=== PATIENT | male | born 1950 | race Caucasian/White ===

== ENCOUNTER 2017-09-20 18:33 | Emergency (ER) | payer MEDICARE, OTHER ==
[~2017-09-20] VITALS: Ht 177.8 cm; Wt 89.4 kg
--- OUTSIDE RECORDS SUMMARY | ~2017-09-20 | XMS ---
Demographics + + + | Address | [address] | | | [place] [address] | + + + | Preferred Language | Unknown | + + + | Marital Status | Unknown | + + + | Alevism Affiliation | Unknown | + + + | Race | Unknown | + + + | Ethnic Group | Unknown | + + + Author + + + | Author | [facility] | + + + | Organization | [facility] | + + + | Address | [address] | | | [place] [address] | + + + | Phone | | + + + Care Team Providers + + + + | Care Hydraulic Specialist Name | Role | Phone | + + + + Unavailable | Unavailable | + + + + PROBLEMS + + + + + + + + | Type | Condition | ICD9-CM | [id number] | Onset | Condition | SNOMED | | | | Code | Code | Dates | Status | Code | + + + + + + + + | Assessment | Overweight | | E66.3 | 10 December, | Active | [id number] | | | | | | 2017 | | | + + + + + + + + | Problem | Tinnitus, | H93.12 | | | Active | [phone] | | | left | | | | | 106 | + + + + + + + + | Problem | Ear | 380.4 | | | Active | [id number] | | | build-up | | | | | | + + + + + + + + | Problem | Elevated | R73.9 | | | Active | [id number] | | | blood | | | | | | | | sugar | | | | | | + + + + + + + + | Problem | Dyslipidem | E78.5 | | | Active | [id number] | | | ia | | | | | | + + + + + + + + | Problem | Overweight | | E66.3 | | Active | [id number] | + + + + + + + + | Problem | Seborrheic | L82.1 | | | Active | 49927688 | | | keratosis | | | | | | + + + + + + + + | Problem | Screening | Z12.5 | | | Active | [id number] | | | for | | | | | | | | prostate | | | | | | | | cancer | | | | | | + + + + + + + + | Problem | Encounter | | Z13.89 | | Active | [phone] | | | for | | | | | | | | screening | | | | | | | | for other | | | | | | | | disorder | | | | | | + + + + + + + + ALLERGIES + + + + +---------+ | Substance | Reaction | Event Type | Date | Status | + + + + +---------+ | N.K.D.A. | Unknown | Non Drug | December, | Unknown | | | | Allergy | | | + + + + +---------+ SOCIAL HISTORY No smoking Hx information available PLAN OF CARE VITAL SIGNS + + + + | Height | 58 in | 2016-12-25 | + + + + | Weight | 190 lbs | 2016-12-25 | + + + + | BMI | 39.71 kg/m2 | 2016-12-25 | + + + + | Temperature | 97.6 degrees Fahrenheit | 2016-12-25 | + + + + | Heart Rate | 89 /min | 2016-12-25 | + + + + | Blood pressure systolic | 131 mm Hg | 2016-12-25 | + + + + | Blood pressure diastolic | 86 mm Hg | 2016-12-25 | + + + + MEDICATIONS Unknown Medications RESULTS No Results PROCEDURES + + + + + | Procedure | Date Ordered | Related Diagnosis | Body Site | + + + + + | Est Level II | December 25, 2016 | | | | Limited | | | | + + + + + | DS[facility] MED/CURRENT | December 25, 2016 | | | | MED MERGE | | | | + + + + + IMMUNIZATIONS No Known Immunizations"
[~2017-09-20 18:33] MED LIST: CYCLOBENZAPRINE10 MG PO; IBUPROFEN400 MG PO; NORCO 10-325 T1 EACH PO; NORCO 5-325 TA1 EACH PO; TYLENOL325 MG PO
[2017-09-20] MEDS ORDERED: NORCO 5-325 TA1 EACH PO (19:27)
[2017-09-20] MEDS ORDERED: CYCLOBENZAPRINE10 MG PO (19:27)
[2018-01-15] MEDS ORDERED: IRON325 M1 PO (13:29)
[2018-01-15] MEDS ORDERED: VITAMIN C250 M1 PO (13:30)
== END 2017-09-20 19:47 | disposition home or self-care (01) ==
LOC: ED 18:33
DX: M54.5 Low back pain (principal)
CPT/HCPCS: 99283

== ENCOUNTER 2017-10-19 20:51 | Inpatient (IN) | payer MEDICARE, OTHER ==
[~2017-10-19] VITALS: Ht 177.8 cm; Wt 82.1 kg
[2017-10-20] MEDS ORDERED: IBUPROFEN200 M1 PO (00:04)
[2017-10-20] MEDS ORDERED: ALEVE220 M1 (00:05)
--- NOTE | 2017-10-20 00:37 | NUR ---
ADMITTED PER STRETCHER FROM ED AT 2320. IS ALERT AND ORIENTED X3. DENIES BACK DISCOMFORT. ONLY C/O IS DISCOMFORT FROM NGT. NGT RETAPED. BLOOD THAT WAS STARTED IN ED NOW COMPLETE. PT HAS STOOD AT BEDSIDE X2 TO VOID. CRISTAL BEING UP WELL, NO INC IN HR.
--- NOTE | 2017-10-20 01:18 | NUR ---
PT USED CALL LIGHT TO HAVE URINAL EMPTIED. ASSISTED PT IN BED, NO OTHER NEEDS AT THIS TIME. STATES HE FEELS LITTLE BETTER.
--- NOTE | 2017-10-20 02:18 | NUR ---
NOTED HR INC TO 124, PT FOUND STANDING AT BEDSIDE TO VOID. REMINDED TO CALL BEFORE GETTING UP. NGT TO LCS WITH RETURN OF DARK [employer].
--- NOTE | 2017-10-20 03:15 | NUR ---
PT USED CALL LIGHT TO USE THE URINAL. SAT ON EDGE OF BED, VOIDED 100. ASSISTED BACK TO BED, READJUSTED SELF WITH HELP. CALL LIGHT WITH REACH. NO OTHER NEEDS.
--- NOTE | 2017-10-20 04:04 | NUR ---
PT VOIDING FREQ. C/O INC BACK PAIN AND REQUESTING SOMETHING FOR IT. GIVEN A COLD PACK ALSO. PT HAS ALSO C/O FREQ OF DISCOMFORT OF NGT. PT HAS HAD SCANT AMT DARK TARRY COLORED DRAINAGE FROM NGT. DR MOJICA CALLED AND ORDERS RECIEVE.
--- NOTE | 2017-10-20 04:25 | NUR ---
NG TUBE DC'D WITHOUT PROBLEM. GIVEN 1 NORCO PO.
--- NOTE | 2017-10-20 06:13 | NUR ---
UP FREQ TO VOID. HR DOES INC TO 120'S WITH STANDING. NO OTHER C/O. BACK PAIN IMPROVED.
--- NOTE | 2017-10-20 08:17 | NUR ---
PATIENT IS CURRENTLY IN NO PAIN. NO N/V/D. VS ARE STABLE, LUNGS CLEAR, BOWEL TONES ACTIVE. PATIENT VERBALIZES UNDERSTANDING THAT THE OVER USE OF NSAID MEDICATIONS MAY HAVE CONTRIBUTED TO HIS CURRENT DX AND ADMISSION. AM MEDS BEING HELD FOR NOW WE ARE AWAITING AN ETA FOR PATIENT TO GO TO SURGERY FOR EGD. PATIENT STANDS TO USE THE URINAL AT BEDSIDE WITHOUT DIFFICULTY.
--- NOTE | 2017-10-20 08:20 | NUR ---
HERE TO SEE PATIENT AND DISCUSS PROCEDURE FOR EGD. PATIENT HAD NO QUESTIONS. CONSENT FOR SURGERY SIGNED AND WITNESSED BY THIS RN AND PLACED ON THE FRONT OF THE CHART.
--- NOTE | 2017-10-20 08:50 | NUR ---
CALLED FOR PRE-OP EKG.
--- NOTE | 2017-10-20 10:22 | NUR ---
INFORMED PATIET VOIDING A LOT. ORTHOSTATIC VS ORDERED. SUPINE 123/70 HR=99 SITTING 105/70 SV=977 STANDING 97/59 WI=068 3 MINUTES STANDING 108/61 KF=431 AND PATIENT DIZZY. INFORMED AND PATIENT IV FLUID TO REMAIN AT 150MLS/HR FOR NOW.
--- NOTE | 2017-10-20 11:12 | NUR ---
PATIENT RESTING QUIETLY IN BED AND AWAITING TO GO TO THE OR.
--- NOTE | 2017-10-20 11:49 | NUR ---
PATIENT LEFT FOR OR AT 1137.
--- NOTE | 2017-10-20 13:20 | NUR ---
10/20/17 1320 Lory Zurita 1300 to pacu, oral airway in place. airway assist by staff cont needed 1305 oral airway removed. 1315 responds to verbal commands 1320 repositioned self in bed. o2 room air sats 98%. denies pain or nausea at this time.
--- NOTE | 2017-10-20 13:21 | NUR ---
PT TO EGD AND POSSIBLE SURGERY. WILL FOLLOW NEEDED
--- NOTE | 2017-10-20 13:41 | NUR ---
PATIENT RETURNED FROM RECOVERY AT 1341. PATIENT HAS A DUODENAL ULCER, 6 CLIPS WERE PLACED AND AN EPI INJECTION GIVEN. I EXPLAINED ALL THIS TO THE PATIENT AND HIS OFF THE PT COPY OF THE MD NOTES AND PICTURES AND THEY VERBALIZED UNDERSTANDING. PATIENT RESTING QUIETLY AT THIS TIME. IS AT THE PATIENT'S BEDSIDE.
--- NOTE | 2017-10-20 16:00 | NUR ---
PATIENT CONTINUES TO VOID VIA URINAL FREQUENTLY, VS STABLE, NO N/V/D, NO ABD PAIN.
--- NOTE | 2017-10-20 17:30 | EKG ---
[facility] [address] [facility] [place], [place] [address] Signed Normal sinus rhythm Inferior infarct , age undetermined Abnormal ECG No previous ECGs available Confirmed by ARIAS MOJICA MD ([id number]) on 10/20/2017 5:30:15 PM Electronically Signed By: ARIAS MOJICA MD 10/20/17 1730 PATIENT NAME: REGINALD GARAY JR Electrocardiogram DATE OF : 54 PHYSICIAN: ARIAS MOJICA MD REPORT #: [id number] REPORT IS CONFIDENTIAL AND NOT TO BE RELEASED WITHOUT AUTHORIZATION
--- NOTE | 2017-10-20 17:54 | NUR ---
TALKED WITH ABOUT PATIENT'S FREQUENT VOIDING AND HE ORDERED IV FLUIDS DECREASED TO 85MLS/HR. PATIENT'S LIGHT WENT ON AT THIS TIME AND I WAS EXPECTING THE PATIENT NEEDED TO VOID AGAIN, BUT APON ENTERING THE ROOM I WAS INFORMED THE PATIENT HAD PULLED OUT HIS RAC 18G IV. IT WAS NOT BLEEDING AND I SAID IT THE CATHETER WAS INTACT AND THERE WAS NO BLEEDING. TAPE REMOVED AND PATIENT IS DOING ALRIGHT.
--- NOTE | 2017-10-20 18:00 | NUR ---
PATIENT AND WERE TRYING TO EXPLAIN THE PATIENT'S PROCEDURE TO THERE SON. PATIENT REQUESTED THAT I EXPLAIN THE PROCEDURE AND THE OUTCOME AND THE PLAN OF CARE FROM HERE. THIS I DID AND THE SON SEEMED TO UNDERSTAND WHAT I WAS EXPLAININING EASILY. HE ASKED FOR SOME OTHER INFORMATION, WHICH i DID NOT HAVE ON HAND, BUT TOLD HIM I WOULD GET THE ANSWER TO HIS PARENTS AND HE COULD ASK THEM LATER. WHICH I DID.
--- NOTE | 2017-10-20 18:06 | NUR ---
CALLED AND UPDATED HIM ON THE PATIENT'S IV AND LAB STATUS. HE VERBALIZED UNDERSTANDING AND KNOWS LABS ARE ORDERED FOR 6AM TOMORROW MORNING.
--- NOTE | 2017-10-20 19:11 | NUR ---
Per Dr Trivedi, patient is to take both famotidine and pantoprazole
--- NOTE | 2017-10-20 20:47 | NUR ---
CONT TO VOID FREQ. SHEETS WET ICE PACK LEAKED. HAD PT SIT IN CHAIR WHILE BED CHANGED. CRISTAL FAIR, HR UP TO 108 WITH BEING UP. PT SOMEWHAT STIFF FROM BEING IN BED. WILL GIVEN NORCO FOR BACK PAIN AND REST 30 MIN AFTER CARAFATE WAS GIVEN.
--- NOTE | 2017-10-20 21:11 | NUR ---
UP AT BEDSIDE TO VOID. GIVEN 1 NORCO 5/325 PO WITH SIP H20 FOR BACK PAIN, AND FOR REST.
--- NOTE | 2017-10-20 23:26 | NUR ---
HAD BEE SLEEPING, AWAKE TO VOID. HR TO 134 WITH SITTING AT BEDSIDE. NO C/O WHILE UP. READY TO GO BACK TO SLEEP.
--- NOTE | 2017-10-21 00:59 | NUR ---
C/O INC BACK PAIN. ASKING FOR WARM PACK, WHICH WAS GIVEN. ALSO GIVEN 1 NORCO PO.
--- NOTE | 2017-10-21 03:17 | NUR ---
AWAKE TO VOID, HR UP TO 118 WITH SITTING UP. DENIES BACK PAIN AT THIS TIME.
--- NOTE | 2017-10-21 08:29 | NUR ---
PATIENT IS RESTING IN BED AT THIS TIME. AM MEDS HAVE BEEN ADMINISTERED. IV'S FLUSH WITHOUT DIFFICULTY AND ARE WNL. LUNGS CLEAR. PATIENT IS HAVING 2/10 BACK PAIN AT THIS TIME, BUT IS OK WITH THAT AND DOES NOT WISH TO HAVE ANY PAIN MEDICATION AT THIS TIME. PATIENT SAID HE WILL INFORM THE STAFF IF AND WHEN HE NEEDS ANYTHING FOR PAIN. PATIENT ASKED ME TO GO OVER HIS COPY OF 'S NOTES AND HIS EGD PROCEDURE PICTURES WITH HIM AGAIN, WHICH I DID UNTIL HE VERBALIZED UNDERSTANDING TO HIS SATISFACTION. VS HAVE BEEN STABLE. PATIENT STANDING TO VOID. WILL CONTINUE TO MONITOR.
--- NOTE | 2017-10-21 10:08 | NUR ---
A UNIT OF PRBC'S WAS STARTED AT [address] MOJICA SAW THE PATIENT THIS MORNING AND ORDERED 1 UNIT OF PRBC'S. 1ST SET OF VS STABLE AND POST 15 MINUTES START OF UNIT VS ALSO STABLE.
--- NOTE | 2017-10-21 10:55 | NUR ---
PATIENT'S BLOOD STILL INFUSING AND HE IS FEELING FINE. K+ RIDER HUNG AND RUNNING AND PATIENT HAS A VISITOR WITH HIM AT THIS TIME.
--- NOTE | 2017-10-21 11:29 | NUR ---
PATIENT'S CHRONIC BACK PAIN FROM SITTING IN BED HAS INCREASED FROM 2/10 THIS MORNING TO 7/10 NOW AND HAS REQUESTED PAIN MDICATION. 1 PO NORCO GIVEN.
--- NOTE | 2017-10-21 13:13 | NUR ---
MED REC COMPLETE. PATIENT STATES HE NO LONGER TAKES IBUPROFEN, NAPROXEN, NORCO, NOR CYCLOBENZAPRINE FOR HIS BACK PAIN.
--- NOTE | 2017-10-21 14:22 | NUR ---
PT LAYING IN BED, INVITED ME IN RM. PT DENIED PAIN AT THIS TIME, SAID PAIN MEDS STILL WORKING. PT THEN BEGAN TO SHARE WITH ME THAT HIS STOMACH ULCER WAS REPAIRED DURING EGD. HE MENTIONED HIS BACK IS THE MAIN SOURCE OF PAIN AND DISCOMFORT FOR THE PAST SEVERAL YEARS FROM A PREVIOUS INJURY. THIS HEALS PT HOPES TO SEE IF SOMETHING CAN BE DONE FOR HIS BACK. GOOD VISIT, HAD PRAYER WITH PT. WILL CONTINUE TO FOLLOW
--- NOTE | 2017-10-21 14:31 | NUR ---
PATIENT TOLERATED HIS BLOOD TRANSFUSION WELL AND IS CURRENTLY RESTING QUIETLY.
--- NOTE | 2017-10-21 16:39 | NUR ---
PATIENT'S NEW H+H IS MUCH IMPROVED AFTER HIS UNIT OF BLOOD TODAY. STILL AWAITING TO COME AND SEE PATIENT. DR. MOJICA AWAITING 'S VISIT TO DECIDE IF PATIENT SHOULD TRANSFER TO THE FLOOR.
--- NOTE | 2017-10-21 16:47 | NUR ---
CALLED WITH THE 1600 H+H AND SAID PATIENT IS STABLE AND CAN MOVE TO THE MEDICAL FLOOR WITH A MECHANICAL SOFT DIET. WAS ON THE OTHER PHONE AND IS GOING TO TRANSFER THE PATIENT TO THE MEDICAL FLOOR. MECHANICAL SOFT DIET ORDERED.
--- NOTE | 2017-10-21 19:41 | NUR ---
PATIENT IS HOUSE CONVENIENCE AND HIS VS HAVE BEEN STABLE ALL DAY. PATIENT HAS ONLY HAD SOME BACK PAIN THAT NEEDED MEDICATION TWICE TODAY. PATIENT ATE 90% OF HIS DINNER.
[2017-10-21] MEDS ORDERED: OMEPRAZOLE20 MG PO (19:56)
[2017-10-21] MEDS ORDERED: SUCRALFATE1 GM/10 ML PO (19:58)
--- NOTE | 2017-10-21 20:07 | NUR ---
SITTING AT EDGED OF BED. STATES DINNER WAS GOOD AND IS SITTING WELL. STATES IS DEBATING ABOUT WHETHER TO TAKE A PAIN PILL NOW OR LATER FOR PAIN CONTROL OF BACK PAIN. JUST GIVEN CARAFATE SO PT IS AWARE OF NEED TO WAIT AT LEAST 30MIN BEFORE TAKING ANY ORAL MED.
--- NOTE | 2017-10-21 23:04 | NUR ---
WAS GIVEN [facility] AT 2235 FOR BACK PAIN. RESTING NOW.
--- NOTE | 2017-10-21 23:15 | NUR ---
PT ARRIVED VIA BED FROM CCU WITH HIS BELONGINGS. PT DENIES ANY PAIN AT THIS SIDE AND HAS WATER AT BEDSIDE. ORIENTED PT TO ROOM AND CALL LIGHT AND PT HAS WATER AT BEDSIDE. PT DENIES NEEDS AT THIS TIME. CALL LIGHT IS WITHIN REACH.
--- NOTE | 2017-10-21 23:21 | NUR ---
TRANSFER TO RM 109. REPORT TO DAVID BARLOW.
--- NOTE | 2017-10-22 00:05 | NUR ---
PT IS RESTING WITH EYES CLOSED, RESPIRATIONS EVEN AND NONLABORED AND CALL LIGHT IS WITHIN REACH.
--- NOTE | 2017-10-22 02:45 | NUR ---
ADMINISTERED NORCO, PT IS AWAKE IN BED AND DENIES FURTHER NEEDS. CALL LIGHT IS WITHIN REACH.
--- NOTE | 2017-10-22 04:23 | NUR ---
WOKE PT TO GIVE CARAFATE AND HELPED HIM TO THE RESTROOM. PT STATED HE WOULD LIKE A SHOWER TODAY AND DENIES FURTHER NEEDS AT THIS TIME. CALL LIGHT IS WITHIN REACH.
--- NOTE | 2017-10-22 06:04 | NUR ---
PT IS RESTING WITH EYES CLOSED, RESPIRATIONS EVEN AND NONLABORED AND CALL LIGHT IS WITHIN REACH.
--- NOTE | 2017-10-22 08:02 | NUR ---
PATIENTS IV IN THE LEFT A/C DC'D AT THIS TIME TIP INTACT. PATIENT SET UP FOR A SHOWER AND BREAKFAST ORDERED. HE HAS NO C/O PAIN OR NAUSEA AT THIS TIME. PATIENT IS ALERT AND ORIENTED AT THIS TIME.
--- NOTE | 2017-10-22 08:37 | NUR ---
PATIENT IN BATHROOM, CAIN PARDO ASSISTED HIM TO SHOWER. CLEAN LINENS, GARBAGE EMPTIED. FRESH ICE WATER. CALL LIGHT ON BED.
--- NOTE | 2017-10-22 09:10 | NUR ---
PATIENT DRESSED AND READY FOR DISCHARGE- WAITING FOR . VITALS DONE. CAIN PARDO IN WITH DISCHARGE ORDERS.
[2017-10-22] MEDS ORDERED: MECLIZINE HCL25 MG PO (17:30)
--- NOTE | 2017-10-23 14:12 | CONS ---
[facility] [address] [place], [place] [address] Signed DATE OF CONSULTATION: TIME: 11:00 p.m. CONSULTING PHYSICIAN: Davey Rose MD REQUESTING PHYSICIAN: Arias Mojica MD PROBLEM: Hypotension associated with probable upper gastrointestinal bleeding. HISTORY: This 67-year-old white man who has had over 2 weeks of rather significant and severe back pain. He self-medicated with large doses of Motrin and aspirin. He was unable to see his primary care provider, Dr. Serna due to appointment availability and self-referred to the [facility] where he was seen and referred I believe possibly to a neurosurgeon. Today in the afternoon, he had hematemesis of dark fluid, not aurora blood according to him, but suggestive of it. Additionally, he had fecal incontinence of dark stool. He did have dinner this evening at about 6 o'clock. He presented to the emergency room where he was evaluated by Dr. Weaver and plans made for admission to the hospital. He was noted to have hypotension with a systolic blood pressure of 82. He received 3.5 L of crystalloid solution and initiation of red blood cells. He has had 1 unit of packed red cells. I was called and given the possible troublesomeness of an ongoing gastrointestinal bleed, recommended passage of a nasogastric tube. This has delivered some dark fluid, but no aurora blood. He is now hemodynamically stable with a systolic pressure of 118. His lab studies showed initial hematocrit of 24.2, platelet count of 453,000. His chem profile showed a potassium of 3.3, glucose of 199. Liver enzymes normal. His albumin is low at 2.8. Coag studies showed a pro-time of 15.1 with an INR 1.1. PAST MEDICAL HISTORY: His past medical history is relatively unremarkable. He has never had ulcer problem in the past. His back pain has relatively new in onset. He does not smoke. Drinks alcohol only rarely. He did undergo a hernia repair in the past approximately 9 years ago. Electronically Signed By: DAVEY ROSE MD 10/23/17 1412 PATIENT NAME: REGINALD GARAY JR CONSULTATION DATE OF : 54 REPORT #: [id number] PHYSICIAN: DAVEY ROSE MD PCP: KYLE SERNA MD REPORT IS CONFIDENTIAL AND NOT TO BE RELEASED WITHOUT AUTHORIZATION [facility] [address] [place] [id number] Signed MEDICATIONS: His medications at admission have included cyclobenzaprine (Flexeril) as well as [place] tablets and of course self-administered Motrin and aspirin. SOCIAL HISTORY: He is accompanied by his , who is chatting on the phone the entire time of our visit. PHYSICAL EXAMINATION: GENERAL: A relatively tall white man, who is pale in complexion. He is wearing glasses and has a fernandez. He does not look distressed or troubled by pain or diaphoresis at this time. VITAL SIGNS: Blood pressure currently reads 118 systolic with a pulse of 83. NECK: Shows no thyromegaly or cervical adenopathy. Trachea is midline. CHEST: Shows normal respiratory excursion without tachypnea. ABDOMEN: Soft and flat and there is no tenderness. There is no mass. He has no ascites. EXTREMITIES: Show no clubbing, cyanosis, or edema. No sign of petechiae. LABORATORY DATA: As noted, hematocrit of 24.2, platelets of 453,000. ASSESSMENT: The patient has had a gastrointestinal bleed, no doubt. The nasogastric tube that was placed shows no sign of bright red blood or anything to suggest ongoing severe hemorrhage. I had initially thought he would require emergency endoscopy and hemorrhage control at this hour, but it appears not to be the case. He has stabilized with fluid infusion and initiation of transfusion. At this point, I would recommend and affirm the plan of Dr. Mojica for admission to the intensive care unit with close monitoring. Infusion of medications on the basis of ulcer prophylaxis, completion of transfusion and anticipate endoscopic evaluation tomorrow morning. If he should "cut loose" with bleeding, we will certainly optimize him as best possible and perform urgent endoscopy this evening. He and his understand and agree to this approach. I will review it further with Dr. Mojica. MD ASA Thornton/MODL /[id number] Electronically Signed By: DAVEY ROSE MD 10/23/17 1412 PATIENT NAME: REGINALD GARAY JR CONSULTATION DATE OF : 54 REPORT #: [id number] PHYSICIAN: DAVEY ROSE MD PCP: KYLE SERNA MD REPORT IS CONFIDENTIAL AND NOT TO BE RELEASED WITHOUT AUTHORIZATION [address] [address] Signed cc: MD Kyle Barnes MD Copies: ARIAS MOJICA MD, MALCOLM MD ~ Electronically Signed By: DAVEY ROSE MD 10/23/17 1412 PATIENT NAME: REGINALD GARAY JR CONSULTATION DATE OF : 54 REPORT #: [id number] PHYSICIAN: DAVEY ROSE MD PCP: KYLE SERNA MD REPORT IS CONFIDENTIAL AND NOT TO BE RELEASED WITHOUT AUTHORIZATION
--- NOTE | 2017-10-23 14:12 | OR ---
[facility] [address] [place], [place] [address] Signed DATE OF OPERATION: 10/20/2017 SURGEON: Davey Rose MD PREOPERATIVE DIAGNOSES: 1. Hematemesis and probable peptic ulcer. 2. Anemia. POSTOPERATIVE DIAGNOSIS: Large bulbar duodenal ulcer with visible vessel and subsequent provoked bleeding. PROCEDURE: Esophagogastroduodenoscopy with hemostatic control of bleeding using hemoclip and epinephrine injection. ANESTHESIA: Intravenous sedation, propofol infusion; Davey Thompson CRNA. INDICATION: This 67-year-old white man is a patient of Dr. Serna and admitted by Dr. Walters late last night. He was noted to have hypotension, hematemesis earlier in the day and blood per rectum. The patient has been taking large amounts of Motrin for low back pain, which he has been doing for at least 2 weeks, possibly longer. His hematocrit at presentation was 24. He had 2 units of packed red cell infusion as he was initially hypotensive with a systolic pressure of 82. He has been hemodynamically stable since observation in the intensive care unit. A nasogastric tube was passed last night showing no sign of bright blood to indicate need for urgent endoscopic evaluation. He has been treated with proton pump inhibitor medication intravenously administered as well as Carafate slurry. He appears to be clinically stable and his hematocrit after 2 units is 25.5. His platelet count is normal and he has no coagulopathy. He is admitted to undergo upper endoscopy to better characterize the problem as well as provide hemostasis as appropriate. He and his understand the risks of bleeding, infection, failure to cure the problem, and other unforeseen complications and wished to proceed. FINDINGS: The source of his bleeding was no doubt a large duodenal ulcer in the bulbar portion. There was a visible vessel, which was provoked to bleeding with application of a hemoclip. This necessitated epinephrine injection locally as well as multiple hemoclip applications to assure hemostasis once again. There was no sign of abnormality beyond the duodenal bulb and only minimal gastric trauma related to the previous nasogastric Electronically Signed By: DAVEY ROSE MD 10/23/17 1412 PATIENT NAME: REGINALD GARAY JR OPERATIVE REPORT DATE OF : 54 REPORT #: [id number] PHYSICIAN: DAVEY ROSE MD PCP: KYLE SERNA MD REPORT IS CONFIDENTIAL AND NOT TO BE RELEASED WITHOUT AUTHORIZATION [address] [address] Signed tube. A CLOtest was not done. DESCRIPTION OF PROCEDURE: The patient was brought to the endoscopy suite and placed in lateral decubitus position. He was given intravenous sedation with the assistance of propofol infusion with the budget director. A bite block was placed. An Olympus video upper endoscope was passed in the hypopharynx. The vocal cords appeared normal. Scope was advanced to the esophagus without problem, throughout its length it was normal. The scope entered the stomach. There was no sign of blood there. There was some bilious fluid. Rugal folds appeared normal. There was some obvious nasogastric tube mucosal trauma, but no ulceration or neoplasm. Retroflexed view showed no sign of GE junction, neoplasm, or ulceration or varices. The scope was passed through the pylorus and immediately noted was a peters-yellowish rather large bulbar duodenal ulcer. It was not actively bleeding. There were several areas of ecchymosis and a small amount of fresh blood, but no large amount of blood and certainly no clot. The scope was carefully manipulated and passed above into the second and third portions, which were entirely normal. The scope was next withdrawn to the bulbar portion and close inspection showed what appeared to be a visible vessel. Visible vessel appeared to be bleeding and on that basis, a hemoclip was carefully manipulated into position and deployed. With application, immediate bleeding was noted. Irrigation was undertaken and several hemoclips were then applied to the area. With some persistent oozing, an epinephrine solution was injected in the area surrounding the clips and ultimately a better characterization of any oozing could be undertaken. A clip was applied in an opportune area, which seemed to allow for hemostasis. Irrigation was undertaken. There was no sign of ongoing bleeding to any degree. The scope was withdrawn, removed, and the patient was taken to the recovery room in good condition. CONCLUDING DIAGNOSIS: Gastrointestinal bleeding related to large bulbar ulceration with visible vessel secondary to nonsteroidal use. PLAN: We will keep him n.p.o. for the time being except for Carafate slurry, which will be administered. Continued use of PPI intravenously in addition of H2 gregg intravenously will be undertaken as well. The control in my view is rather tenuous and close monitoring in intensive care unit is still warranted. Davey Rose MD Electronically Signed By: DAVEY ROSE MD 10/23/17 1412 PATIENT NAME: REGINALD GARAY JR OPERATIVE REPORT DATE OF : 54 REPORT #: [id number] PHYSICIAN: DAVEY ROSE MD PCP: KYLE SERNA MD REPORT IS CONFIDENTIAL AND NOT TO BE RELEASED WITHOUT AUTHORIZATION [facility] [address] [place], [place] [address] Signed /[facility] /[id number] cc: Kyle Serna MD Copies: KYLE SERNA MD ~ Electronically Signed By: DAVEY ROSE MD 10/23/17 1412 PATIENT NAME: REGINALD GARAY JR OPERATIVE REPORT DATE OF : 54 REPORT #: [id number] PHYSICIAN: DAVEY ROSE MD PCP: KYLE SERNA MD REPORT IS CONFIDENTIAL AND NOT TO BE RELEASED WITHOUT AUTHORIZATION
[2018-01-15] MEDS ORDERED: IRON325 M1 PO (13:29)
[2018-01-15] MEDS ORDERED: VITAMIN C250 M1 PO (13:30)
== END 2017-10-22 09:20 | disposition home or self-care (01) | DRG 378 ==
LOC: ED 20:51 → MS 22:35 → CCU 22:35 → MS 10-21 23:16
PROVIDERS: Surgery; ADMIT Internal Medicine
PROC: 30233N1 Transfusion of Nonautologous Red Blood Cells into Peripheral Vein, Percutaneous Approach (ICD-10-PCS; 2017-10-19)
PROC: 3E0G8GC Introduction of Other Therapeutic Substance into Upper GI, Via Natural or Artificial Opening Endoscopic (ICD-10-PCS; principal; 2017-10-20 12:00)
PROC: 0W3P8ZZ Control Bleeding in Gastrointestinal Tract, Via Natural or Artificial Opening Endoscopic (ICD-10-PCS; principal; 2017-10-20 12:00)
DX: K26.4 Chronic or unspecified duodenal ulcer with hemorrhage (principal); D62 Acute posthemorrhagic anemia; T39.395A Adverse effect of other nonsteroidal anti-inflammatory drugs [NSAID], initial encounter; G89.29 Other chronic pain; M54.9 Dorsalgia, unspecified
CPT/HCPCS: 36415; 36430; 80048; 80053; 83735; 85014; 85018; 85025; 85610; 85730; 86850; 86900; 86901; 86920; 93005; 93010; J2704; J3480; J7030; J7060; J7120; P9016

== ENCOUNTER 2017-10-22 16:46 | Emergency (ER) | payer MEDICARE, OTHER ==
[~2017-10-22] VITALS: Ht 177.8 cm; Wt 80.7 kg
[~2017-10-22 16:46] MED LIST changes: +ALEVE220 M1; +IBUPROFEN200 M1 PO; +OMEPRAZOLE20 MG PO; +SUCRALFATE1 GM/10 ML PO
[2017-10-22] MEDS ORDERED: MECLIZINE HCL25 MG PO (17:30)
--- NOTE | 2017-10-23 07:16 | EKG ---
[facility] [address] [facility] [facility] [place], [place] [address] Signed Normal sinus rhythm Normal ECG When compared with ECG of 19-OCT-2017 20:53, No significant change was found Confirmed by FILIBERTO ECHEVARRIA MD ([id number]) on 10/23/2017 7:15:51 AM Electronically Signed By: FILIBERTO ECHEVARRIA MD 10/23/17 0716 PATIENT NAME: REGINALD GARAY JR Electrocardiogram DATE OF : 54 PHYSICIAN: FILIBERTO ECHEVARRIA MD REPORT #: [id number] REPORT IS CONFIDENTIAL AND NOT TO BE RELEASED WITHOUT AUTHORIZATION
[2018-01-15] MEDS ORDERED: IRON325 M1 PO (13:29)
[2018-01-15] MEDS ORDERED: VITAMIN C250 M1 PO (13:30)
== END 2017-10-22 17:45 | disposition home or self-care (01) ==
LOC: ED 16:46
DX: R42 Dizziness and giddiness (principal); Z79.899 Other long term (current) drug therapy
CPT/HCPCS: 93005; 93010; 99283

== ENCOUNTER 2018-09-03 12:09 | Day surgery (SDC) | payer MEDICARE, OTHER ==
[~2018-09-03] VITALS: Ht 180.3 cm; Wt 83.2 kg
[~2018-09-03 12:09] MED LIST changes: +IRON325 M1 PO; +MECLIZINE HCL25 MG PO; +VITAMIN C250 M1 PO
--- NOTE | 2018-09-03 14:50 | NUR ---
09/03/18 Afia Mathew 1440- PT ARRIVES TO PACU FROM ENDO ROOM ON 3 L VIA NC. SATS 100%. RESP EVEN AND UNLABORED. PT TALKING WITH STAFF AND VERBALIZES NO PAIN/NAUSEA. ENC PT TO PASS GAS. 1449 - PT DROWSY BUT RESPONDS TO QUESTIONS APPROPRIATELY. RESP EVEN AND UNLABORED. PT TITRATED TO RA. SATS 96%.
--- NOTE | 2018-09-03 23:51 | OR ---
[facility] [address] [place], [place] [address] Signed DATE OF OPERATION: 09/03/2018 SURGEON: Davey Rose MD PREOPERATIVE DIAGNOSES: 1. History of severe gastrointestinal bleed with giant duodenal ulcer (healing). 2. History of Helicobacter pylori (treated). 3. Screening for colon cancer. POSTOPERATIVE DIAGNOSES: 1. Persistent duodenal bulbar ulcer. No evidence of active bleeding. No evidence of Helicobacter pylori in CLOtest. 2. Hiatal hernia with mild distal esophagitis. 3. Sigmoid diverticular changes. 4. Polyps of colon x4. PROCEDURES PERFORMED: 1. Esophagogastroduodenoscopy with biopsy. 2. Total colonoscopy to cecum with snare polypectomy x1 and cold morcellation polypectomy x3. ANESTHESIA: Intravenous sedation, fentanyl 200 mcg, Versed 6 mg total. INDICATION: A 68-year-old white man, who is the patient Dr. Serna and known to me having been evaluated for significant gastrointestinal bleeding several months ago where he was found to have an H pylori associated with giant duodenal ulcer. Treatment has included Carafate as well as PPI medication. He has had followup endoscopy, which showed persistence of ulcer, though smaller and healing. He has had refractory H pylori though has undergone several treatment regimens. He is symptom free as regard to epigastric pain and has no evidence of ongoing bleeding. Additionally, he is here for colonoscopy. His last colonoscopy was in [address] John Bryson, which was said to be normal. He has no blood per rectum, diarrhea, or constipation. He understands risks of both upper endoscopy and colonoscopy and wished to proceed. FINDINGS: On upper endoscopy, he had a hiatal hernia and distal esophagitis, it was relatively Electronically Signed By: DAVEY ROSE MD 09/03/18 4816 PATIENT NAME: REGINALD GARAY JR OPERATIVE REPORT DATE OF : 54 REPORT #: [id number] PHYSICIAN: DAVEY ROSE MD PCP: KYLE SERNA MD REPORT IS CONFIDENTIAL AND NOT TO BE RELEASED WITHOUT AUTHORIZATION [facility] [address] [place], [place] [address] Signed mild. There was indeed still a duodenal ulcer of the duodenal bulb. It was somewhat friable, but not bleeding and had a peters-white healing base. There was no residual clip at this point. CLOtest biopsies were normal. On colonoscopy, the prep was quite good. Complete colonoscopy was undertaken to the cecum. There were 2 small polyps of the cecum, one polyp at 30 cm and another slightly larger polyp of the low rectum, all were excised completely. DESCRIPTION OF PROCEDURE: The patient was brought to the endoscopy suite, given topical Hurricaine spray hypopharyngeal anesthesia and placed in lateral decubitus position. He was given intravenous sedation to the point of slurred speech and nystagmus. An Olympus video upper endoscope was passed in the hypopharynx. Vocal cords were visualized and found to be normal. The scope was advanced to the esophagus throughout its length, it was normal except in the distal portion where there was mild inflammatory change. There was no sign of stricture, neoplasm, varices, or Barnett epithelium per se. The scope was advanced to the stomach, which was insufflated with air. Excess gastric juices were suctioned free. The rugal folds appeared normal. There was no sign of gastric ulcer. The pylorus was normal, scope was passed through into the duodenum. Immediately noted was residual findings of ulcer with a peters-white base. There was no sign of active bleeding, tissue around it was friable. Scope was advanced beyond this to the second and third portions, which were entirely normal. The scope was withdrawn and better visualization of the ulcer bed was undertaken. There was no sign of visible vessel or neoplasm per se. Previous endoscopy did allow for biopsy of the ulcer. The scope was withdrawn and biopsies then taken of the antrum for both PARAM and pathologic testing. Subsequent evaluation of the CLOtest showed no evidence of change, therefore no clear evidence of H pylori at this time. Retroflexed view in the proximal stomach showed a hiatal hernia. Scope was withdrawn to the distal esophagus were mild distal esophagitis was noted. Biopsies were obtained and narrow band imaging photographs taken as well. The scope was withdrawn more and remaining esophagus appeared normal. Scope was removed and plans made for colonoscopy. The table was additionally rotated and additional sedation given as well. Digital rectal examination was found to be normal. The Olympus video colonoscope was passed in the rectum and manipulated throughout the colon noting diverticular changes in the sigmoid. Scope was ultimately advanced to the cecum. Ileocecal valve and appendiceal orifice were normal. There were 2 small probably hyperplastic appearing polyps of the cecum. These were excised with cold morcellation technique. The scope was further withdrawn and at about 30 cm from the anal verge, there was a small polyp, this was excised with cold morcellation technique as well. It was somewhat flat in appearance. Further withdrawal allowed for retroflexed view of the rectum and findings of a small sessile polyp, this was larger than the other two and was excised with cold snare polypectomy technique without problem. The specimen was passed for pathology as well. The scope was removed and the patient taken to recovery room in Electronically Signed By: DAVEY ROSE MD 09/03/18 2154 PATIENT NAME: REGINALD GARAY JR LIBAN OPERATIVE REPORT DATE OF : 54 REPORT #: [id number] PHYSICIAN: DAVEY ROSE MD PCP: KYLE SERNA MD REPORT IS CONFIDENTIAL AND NOT TO BE RELEASED WITHOUT AUTHORIZATION [address] [place] [address] Signed good condition. CONCLUDING DIAGNOSIS: Persistent duodenal ulcer despite being symptom free. No clear evidence of Helicobacter pylori at this time. PLAN: I will have him restart his Carafate (he discontinued on his own volition) and additionally give Prilosec 20 mg daily. We will see him back in 4-6 weeks to review these findings. Additionally, would consider repeat colonoscopy in 3 years, sooner if clinically indicated. MD ASA Thornton/[facility] /[id number] cc: Kyle Serna MD Copies: KYLE SERNA MD ~ Electronically Signed By: DAVEY ROSE MD 09/03/18 2351 PATIENT NAME: DIANE GARAY JRORD LIBAN OPERATIVE REPORT DATE OF : 54 REPORT #: [id number] PHYSICIAN: DAVEY ROSE MD PCP: KYLE SERNA MD REPORT IS CONFIDENTIAL AND NOT TO BE RELEASED WITHOUT AUTHORIZATION
== END 2018-09-03 15:25 | disposition home or self-care (01) ==
LOC: OPS 12:09 → DS 13:00 → OPS 13:00
PROVIDERS: Surgery
PROC: 0DBP8ZZ Excision of Rectum, Via Natural or Artificial Opening Endoscopic (ICD-10-PCS; 2018-09-03)
PROC: 0DB38ZX Excision of Lower Esophagus, Via Natural or Artificial Opening Endoscopic, Diagnostic (ICD-10-PCS; 2018-09-03)
PROC: 0DB78ZX Excision of Stomach, Pylorus, Via Natural or Artificial Opening Endoscopic, Diagnostic (ICD-10-PCS; 2018-09-03)
PROC: 0DBH8ZZ Excision of Cecum, Via Natural or Artificial Opening Endoscopic (ICD-10-PCS; principal; 2018-09-03 13:00)
PROC: 0DBE8ZZ Excision of Large Intestine, Via Natural or Artificial Opening Endoscopic (ICD-10-PCS; 2018-09-03 13:00)
DX: Z12.11 Encounter for screening for malignant neoplasm of colon (principal); D12.8 Benign neoplasm of rectum; K63.5 Polyp of colon; K57.30 Diverticulosis of large intestine without perforation or abscess without bleeding; K29.50 Unspecified chronic gastritis without bleeding; K20.9 Esophagitis, unspecified; K26.7 Chronic duodenal ulcer without hemorrhage or perforation; K44.9 Diaphragmatic hernia without obstruction or gangrene; H55.00 Unspecified nystagmus; Z87.19 Personal history of other diseases of the digestive system; Z98.890 Other specified postprocedural states
CPT/HCPCS: 88305; 99153; G0500; J2250; J3010; J7120

== ENCOUNTER 2021-04-27 06:30 | Day surgery (SDC) | payer MEDICARE, OTHER ==
[~2021-04-27] VITALS: Ht 1978.7 cm; Wt 90.0 kg
[~2021-04-27 06:30] MED LIST changes: +LEVOTHYROXINE25 MCG PO
[2021-04-27] MEDS ORDERED: PRILOSEC OTC20 MG PO (06:59)
--- NOTE | 2021-04-27 10:29 | NUR ---
04/27/21 1029 Lizzette Castro 1028 PATIENT ARRIVES TO PACU AWAKE BUT DROWSY. RESP EVEN AND UNLABORED, NC AT 2 LITERS. DENIES PAIN OR NAUSEA.
--- NOTE | 2021-05-01 10:37 | OR ---
[facility] [address] [facility] [place], [place] [address] Signed DATE OF OPERATION: 04/27/2021 SURGEON: Davey Rose MD PREOPERATIVE DIAGNOSES: 1. Recurrent epigastric pain, reminiscent of prior duodenal ulcer. 2. Distant history of giant duodenal ulcer (2018 with bleeding). POSTOPERATIVE DIAGNOSIS: Beginnings of recurrent duodenal bulbar ulcer. PROCEDURE: Esophagogastroduodenoscopy with biopsy. ANESTHESIA: Intravenous sedation, fentanyl 100 mcg and Versed 2 mg. INDICATION: This 71-year-old white man is a patient of Dr. Kyle Serna. I am very familiar with him in the past having treated him for a bleeding duodenal ulcer in 2018 requiring endoscopic control. Therapy included PPI medication and Carafate. Over time, he has recovered fully from this. He last underwent upper endoscopy by me on March 01, 2019, showing a healed, but friable area of the duodenal ulceration. He at one time did have H. pylori associated with his ulceration. He has been maintained on PPI medication as well as Carafate and doing well. In recent times, his Prilosec was discontinued and he was started on Pepcid, though he continued this Carafate. Soon thereafter, he began having epigastric pain reminiscent of his prior ulcer pain and on that basis contacted me this past week and he was seen on April 25, 2021 and I have recommended that upper endoscopy be promptly performed to assess for recurrent ulceration. I did initiate Prilosec 20 mg p.o. b.i.d. and continued use of Carafate in the meantime. The patient understands the risks of bleeding, infection, and perforation related upper endoscopy and wished to proceed. FINDINGS: Indeed there is a beginning of a duodenal ulcer at the same area as before. There was no deep ulceration, but there was friability and easy bleeding. CLOtest was negative thus far indicating no evidence of H pylori so far. He does have a hiatal hernia, but Electronically Signed By: DAVEY ROSE MD 05/01/21 [facility] PATIENT NAME: REGINALD GARAY JR OPERATIVE REPORT DATE OF : 54 REPORT #: [id number] PHYSICIAN: DAVEY ROSE MD PCP: KYLE SERNA MD REPORT IS CONFIDENTIAL AND NOT TO BE RELEASED WITHOUT AUTHORIZATION [facility] [address] [place], [place] [address] Signed no sign of associated esophagitis and no other abnormalities. He does not have multifocal ulcerative disease that might suggest gastrinoma or other abnormality. DESCRIPTION OF PROCEDURE: The patient was brought to the endoscopy suite and given topical lidocaine anesthesia and intravenous sedation to the point of slurred speech and nystagmus with full cardiopulmonary monitoring. A bite block was placed. An Olympus video upper endoscope was passed in the hypopharynx and the vocal cords appeared normal. The scope was advanced to the esophagus. Examination throughout showed the esophagus to be normal. Stomach was entered. No sign of blood or clot or anything of that sort. Rugal folds appeared normal. The pylorus was normal and scope was passed through into the duodenum. The scope was withdrawn from the 3rd portion of the duodenum and careful inspection showed no sign of abnormality into the bulbar portion where an area of fresh blood and friability and beginnings of an ulcer was once again noted. There was no sign of active bleeding to require clipping or cautery. Irrigation was undertaken confirming a recurrent bulbar ulcer beginning. The scope was withdrawn to the antrum of the stomach, which was then biopsied for both PARAM and pathologic testing. Retroflexed view was undertaken confirming a large hiatal hernia. Scope withdrawn. The distal esophagus appeared normal. Careful withdrawal of scope showed no other findings of concern. He is taken to recovery room in good condition. CONCLUDING DIAGNOSIS: Beginnings of recurrent bulbar ulceration. PLAN: Prilosec 20 mg p.o. b.i.d. and continued use of Carafate. We will see him back in 4-6 weeks. I believe he would be considered inadequately treated with maintenance therapy of H2 gregg and unfortunately will require PPI medication and possibly Carafate going forward. Davey Rose MD /[facility] /[id number] cc: Kyle Serna MD Electronically Signed By: DAVEY ROSE MD 05/01/21 1037 PATIENT NAME: REGINALD GARAY OPERATIVE REPORT DATE OF : 54 REPORT #: [id number] PHYSICIAN: DAVEY ROSE MD PCP: KYLE SERNA MD REPORT IS CONFIDENTIAL AND NOT TO BE RELEASED WITHOUT AUTHORIZATION [address] [address] Signed Copies: KYLE SERNA MD ~ Electronically Signed By: DAVEY ROSE MD 05/01/21 1037 PATIENT NAME: TANISHAREGINALD OPERATIVE REPORT DATE OF : 54 REPORT #: [id number] PHYSICIAN: DAVEY ROSE MD PCP: KYLE SERNA MD REPORT IS CONFIDENTIAL AND NOT TO BE RELEASED WITHOUT AUTHORIZATION
== END 2021-04-27 11:05 | disposition home or self-care (01) ==
LOC: DS 06:30 → OPS 06:30 → DS 09:00 → OPS 11:05
PROVIDERS: ATTEND Surgery
PROC: 0DB78ZX Excision of Stomach, Pylorus, Via Natural or Artificial Opening Endoscopic, Diagnostic (ICD-10-PCS; principal; 2021-04-27 09:00)
DX: K26.9 Duodenal ulcer, unspecified as acute or chronic, without hemorrhage or perforation (principal); K44.9 Diaphragmatic hernia without obstruction or gangrene; Z20.822 Contact with and (suspected) exposure to COVID-19; Z86.010 Personal history of colon polyps; Z87.11 Personal history of peptic ulcer disease
CPT/HCPCS: 99153; C9803; G0500; J2250; J3010; J7121; U0003

== ENCOUNTER 2021-06-12 08:56 | Emergency (ER) | payer MEDICARE, OTHER ==
[~2021-06-12] VITALS: Ht 170.2 cm; Wt 87.3 kg
[~2021-06-12 08:56] MED LIST changes: +PRILOSEC OTC20 MG PO
[2021-06-12] MEDS ORDERED: CYCLOBENZAPRINE10 MG PO (11:29)
== END 2021-06-12 11:35 | disposition home or self-care (01) ==
LOC: ED 08:56
DX: M79.604 Pain in right leg (principal); Z79.899 Other long term (current) drug therapy
CPT/HCPCS: 73590; 99283

== ENCOUNTER 2021-10-15 07:00 | Day surgery (SDC) | payer MEDICARE, OTHER ==
[~2021-10-15] VITALS: Ht 180.3 cm; Wt 84.1 kg
--- NOTE | ~2021-10-15 | OR ---
[facility] [address] [place], [place] [address] Draft DATE OF OPERATION: 10/15/2021 SURGEON: Davey Rose MD PREOPERATIVE DIAGNOSIS: Colon evaluation, asymptomatic. POSTOPERATIVE DIAGNOSES: 1. Flat polyp at 40 cm (excised) with mucosal lift technique. 2. Small adenomatous polyp of cecum (excised). PROCEDURES: Total colonoscopy to cecum with cold morcellation polypectomy x1 and cold snare mucosal lift technique x1. ANESTHESIA: Intravenous sedation; fentanyl 100 mcg and Versed 6 mg. INDICATION: This 71-year-old white man is a patient of Dr. Serna, who last underwent colonoscopy in 2019. He was recommended to have repeat colonoscopy in three years. He is symptom free at this time. He has no family history of colon cancer. He does have a personal history of significant duodenal ulcer disease, which is well managed with medications. He is admitted at this time to undergo colonoscopy. He understands the risk of bleeding, infection, and perforation. FINDINGS: The prep was good. Complete colonoscopy was undertaken to the cecum. He had a small polyp of the cecum that was excised, it was almost certainly an adenoma, it was excised with a single cold morcellation polypectomy technique without problem. Additionally, he had a subtle flat polyp at approximately 40 cm. This was amenable only to mucosal lift technique, but was excised completely. There were scattered diverticula in the colon and internal hemorrhoids as well, but neither were problematic in appearance. DESCRIPTION OF PROCEDURE: The patient was brought to the endoscopy suite and placed in the lateral decubitus position, given intravenous sedation to the point of slurred speech and nystagmus. Digital rectal examination was normal. An Olympus video colonoscope was passed in the rectum and manipulated throughout the PATIENT NAME: REGINALD GARAY JR OPERATIVE REPORT DATE OF : 54 REPORT #: [id number] PHYSICIAN: DAVEY ROSE MD PCP: KYLE SERNA MD REPORT IS CONFIDENTIAL AND NOT TO BE RELEASED WITHOUT AUTHORIZATION [facility] [address] [place], [place] [address] Draft colon ultimately intubating the cecum itself. The ileocecal valve and appendiceal orifice were normal. Upon the beginning of withdrawal of the scope, a small sessile adenomatous appearing polyp was noted in the junction between the cecum and the right colon. This was excised with cold morcellation technique completely. The scope was then withdrawn and examination throughout showed no sign of abnormality until approximately 40 cm from the anal verge, where a subtle area of flat mucosal change was noted. Narrow band imaging confirmed the lesion highly likely to be adenomatous flat type polyp. An attempt with cold snare polypectomy was unable to grasp the lesion and on that basis, mucosal lift technique was indicated. Using a spot tattoo ink as well as a sclerotherapy needle, the mucosa was elevated from the underlying submucosa and using cold snare technique, complete excision undertaken. Cold morcellation was used to touch up the site. Complete extirpation of the polyp was noted and the specimen was passed for pathology. Further withdrawal showed a few scattered diverticula of the sigmoid and retroflexed view showed internal hemorrhoidal changes. Scope was removed and the patient was taken to the recovery room in good condition. CONCLUDING DIAGNOSIS: Polyps x2; small diverticula and internal hemorrhoids. PLAN: Recommend repeat colonoscopy in three years, sooner if symptoms should occur. He will return to the ongoing care of Dr. Serna otherwise. MD ASA Thornton/[facility]ARJINDER /[id number] cc: Kyle Serna MD Copies: KYLE SERNA MD PATIENT NAME: REGINALD GARAY JR OPERATIVE REPORT DATE OF : 54 REPORT #: [id number] PHYSICIAN: DAVEY ROSE MD PCP: KYLE SERNA MD REPORT IS CONFIDENTIAL AND NOT TO BE RELEASED WITHOUT AUTHORIZATION [address] [address] Draft ~ PATIENT NAME: REGINALD GARAY JR OPERATIVE REPORT DATE OF : 54 REPORT #: [id number] PHYSICIAN: DAVEY ROSE MD PCP: KYLE SERNA MD REPORT IS CONFIDENTIAL AND NOT TO BE RELEASED WITHOUT AUTHORIZATION
--- NOTE | 2021-10-15 09:25 | NUR ---
10/15/21 0925 Gay Armstrong 0919- PT ARRIVES TO PACU AROUSABLE TO STIMULI. PT OPENS EYES BUT FALLS INSTANTLY BACK TO SLEEP WHEN NOT BEING TALKED TO. RESP EVEN AND UNLABORED. OXYGEN SAT HIGH 90'S TO 100% ON 3L VIA NC.
== END 2021-10-15 10:19 | disposition home or self-care (01) ==
LOC: DS 07:00 → OPS 07:00 → DS 08:45 → OPS 10:19
PROVIDERS: ATTEND Surgery
PROC: 0DBE8ZZ Excision of Large Intestine, Via Natural or Artificial Opening Endoscopic (ICD-10-PCS; 2021-10-15)
PROC: 3E0H8GC Introduction of Other Therapeutic Substance into Lower GI, Via Natural or Artificial Opening Endoscopic (ICD-10-PCS; 2021-10-15)
PROC: 0DBE8ZZ Excision of Large Intestine, Via Natural or Artificial Opening Endoscopic (ICD-10-PCS; principal; 2021-10-15 08:45)
DX: D12.0 Benign neoplasm of cecum (principal); K57.30 Diverticulosis of large intestine without perforation or abscess without bleeding; K64.8 Other hemorrhoids; K26.4 Chronic or unspecified duodenal ulcer with hemorrhage; Z86.010 Personal history of colon polyps
CPT/HCPCS: 99153; G0500; J2250; J3010

== ENCOUNTER 2023-08-26 13:15 | Day surgery (SDC) | payer MEDICARE, OTHER ==
[~2023-08-26] VITALS: Ht 175.3 cm; Wt 93.0 kg
[~2023-08-26 13:15] MED LIST changes: +CARBIDOPA-LEVO1 EACH PO
[2023-08-26 13:33] VITALS: BP 131/76
[2023-08-26 15:45] VITALS: BP 129/82
--- NOTE | 2023-08-26 16:36 | NUR ---
08/26/23 1636 Rosa Hunt 1518 PT ARRIVED IN PACU SLEEPY. ABD SOFT AND PASSING FLATUS. 1530 DR AT BEDSIDE. 1545 SITTING UP IN BED SIPPING ON WATER. 1550 GETTING DRESSED WITH STAND BY ASSIST. DC INSTRUCTIONS GIVEN. 1602 LEFT VIA W/C.
--- NOTE | 2023-08-26 18:49 | OR ---
[facility] [address], [place] [address] Signed DATE OF OPERATION: 08/26/2023 SURGEON: Davey Rose MD PREOPERATIVE DIAGNOSIS: History of serrated adenoma 2020. POSTOPERATIVE DIAGNOSES: 1. No evidence of persistent or recurrent serrated adenoma. 2. Small polyp mid transverse colon (excised). PROCEDURE: Total colonoscopy to cecum with cold morcellation polypectomy x1. ANESTHESIA: Intravenous sedation; fentanyl 100 mcg and Versed 4 mg. INDICATION: This 73-year-old white man is a patient of Dr. Serna and well known to me from the past having undergone treatment for bleeding duodenal ulcer. He requires PPI and Carafate on an ongoing basis, but has no problems as regard to his duodenal ulcer. He also has a history of H pylori associated ulcer. He underwent colonoscopy a year ago, which was found to have a serrated adenoma for which short-term interval colonoscopy has been recommended by me. He understands the risk of bleeding, infection, and perforation related to colonoscopy and wished to proceed. FINDINGS: The prep was excellent. Complete colonoscopy was undertaken to the cecum. An area of prior polypectomy and endoscopic tattoo dye was noted. No evidence of recurrent or persistent polyp. A mid transverse colon small linear polyp was noted, this was excised with cold morcellation technique. The remaining colon was normal. DESCRIPTION OF PROCEDURE: The patient was brought to the endoscopy suite and placed in the lateral decubitus position, given intravenous sedation to the point of slurred speech and nystagmus. Digital rectal examination was normal. Full cardiopulmonary monitoring was maintained. The Olympus video colonoscope was passed in the rectum and manipulated throughout the colon noting along the way endoscopic tattoo dye. There was no evidence of persistent or recurrent polyp in that area. The scope was ultimately advanced to the cecum. Ileocecal valve and appendiceal orifice were normal. Scope was withdrawn from that Electronically Signed By: DAVEY ROSE MD 08/26/23 1849 PATIENT NAME: REGINALD GARAY JR OPERATIVE REPORT DATE OF : 54 REPORT #: [id number] PHYSICIAN: DAVEY ROSE MD PCP: KYLE SERNA MD REPORT IS CONFIDENTIAL AND NOT TO BE RELEASED WITHOUT AUTHORIZATION [facility] [address], [place] [address] Signed point and examination showed no sign of abnormality until the mid transverse colon where a small linear polyp was noted, this was excised with cold morcellation technique completely. The scope was further withdrawn and remaining colon was normal. Retroflexed view was normal as well. The scope was removed and the patient was taken to the recovery room in good condition. CONCLUDING DIAGNOSES: 1. No evidence of remaining recurrent or persistent serrated adenoma. 2. New small polyp of the mid transverse colon, excised. PLAN: Recommend repeat colonoscopy in 5 years, sooner if symptoms should occur. He will return to the ongoing care of Dr. Serna. MD ASA Thornton/HARJINDER /[id number] cc: Kyle Serna MD Copies: KYLE SERNA MD ~ Electronically Signed By: DAVEY ROSE MD 08/26/23 1849 PATIENT NAME: TANISHAREGINALDKANG LOUIE OPERATIVE REPORT DATE OF : 54 REPORT #: [id number] PHYSICIAN: DAVEY ROSE MD PCP: KYLE SERNA MD REPORT IS CONFIDENTIAL AND NOT TO BE RELEASED WITHOUT AUTHORIZATION
== END 2023-08-26 16:02 | disposition home or self-care (01) ==
LOC: DS 13:15 → OPS 13:15 → DS 13:45 → OPS 13:45
PROVIDERS: ATTEND Surgery
PROC: 0DBL8ZZ Excision of Transverse Colon, Via Natural or Artificial Opening Endoscopic (ICD-10-PCS; principal; 2023-08-26 13:45)
DX: K63.5 Polyp of colon (principal)
CPT/HCPCS: 99153; G0500; J2250; J3010; J7121

== ENCOUNTER 2024-01-16 18:18 | Emergency (ER) | payer MEDICARE, OTHER ==
[~2024-01-16] VITALS: Ht 175.3 cm; Wt 95.2 kg
[2024-01-16] MEDS ORDERED: SUCRALFATE1 GM PO (18:30)
[2024-01-16] MEDS ORDERED: ACETAMINOPHEN 500 MG TAB PO ONE (18:45)
[2024-01-16 19:04] LABS: HEMOGLOBIN 13.7 g/dL (12.0-18.0); RDW 13.9 (10.5-15.0)
[2024-01-16 19:07] LABS: BASOPHILS 1.1 % (0-2); EOSINOPHILS 5.2 % (0-6); HEMATOCRIT 41.1 % (35.0-50.0); LYMPHOCYTES 24.4 % (24-44); MCH 30.9 (27-36); MCHC 33.2 g/dl (30-36); MONOCYTES 9.8 % (0-12); NEUTROPHILS 59.5 % (39-80); PLATELET COUNT 273 K/uL (140-440); RBC 4.42 M/ul (4.3-5.7)
[2024-01-16 19:19] LABS: ALBUMIN 3.8 g/dL (3.4-5.0); ALBUMIN/GLOBULIN RATIO 1.09 (1.1-2.4); ANION GAP 15.7 (7-21); BILIRUBIN, TOTAL 0.3 ng/dL (0.2-1.0); BUN/CREATININE RATIO 18.08 (6.0-28.6); CALCIUM 8.6 mg/dL (8.5-10.1); CREATININE, SERUM 0.94 mg/dL (0.70-1.30); POTASSIUM 3.7 mmol/L (3.5-5.1); PROTEIN, TOTAL 7.3 g/dL (6.4-8.2)
[2024-01-16 20:10] LABS: BILIRUBIN, URINE POSITIVE (negative); BLOOD/HGB, URINE NEGATIVE (Negative); KETONE, URINE NEGATIVE (Negative); LEUK ESTERASE, URINE NEGATIVE (negative); NITRITE, URINE NEGATIVE (negative); PH, URINE 6.5 (5-7)
[2024-01-16] MEDS ORDERED: TRAMADOL HCL50 MG PO (20:17)
[2024-01-16] MEDS ORDERED: TRAMADOL HCL 50 MG HOME.PACK PO ONE (20:30)
[2024-01-16 20:35] VITALS: BP 125/83
--- NOTE | 2024-01-17 12:46 | EKG ---
[facility] [address] [facility] [place] [address] Signed Normal sinus rhythm Cannot rule out Anterior infarct , age undetermined Abnormal ECG Confirmed by Marlin Samuel MD () on 01/17/2024 12:46:23 PM Electronically Signed By: MARLIN SAMUEL MD 01/17/24 1246 PATIENT NAME: REGINALD GARAY JR Electrocardiogram DATE OF : 54 PHYSICIAN: MARLIN SAMUEL MD REPORT #: [id number] REPORT IS CONFIDENTIAL AND NOT TO BE RELEASED WITHOUT AUTHORIZATION
== END 2024-01-16 20:50 | disposition home or self-care (01) ==
LOC: ED 18:18
PROVIDERS: Internal Medicine
DX: S22.32XA Fracture of one rib, left side, initial encounter for closed fracture (principal); G20.A1 Parkinson's disease without dyskinesia, without mention of fluctuations; K21.9 Gastro-esophageal reflux disease without esophagitis; W18.09XA Striking against other object with subsequent fall, initial encounter; Z86.73 Personal history of transient ischemic attack (TIA), and cerebral infarction without residual deficits; Z79.899 Other long term (current) drug therapy
CPT/HCPCS: 36415; 71101; 80053; 81003; 84484; 85025; 93005; 93010; 99284-25; A9270

== ENCOUNTER 2024-12-04 20:47 | Emergency (ER) | payer MEDICARE, OTHER ==
[~2024-12-04] VITALS: Ht 175.3 cm; Wt 85.0 kg
[~2024-12-04 20:47] MED LIST changes: +SUCRALFATE1 GM PO; +TRAMADOL HCL50 MG PO
[2024-12-04] MEDS ORDERED: DIPHTH,PERTUSS(ACELL),TET VAC 0.5 ML SYRINGE IM ONE (21:30)
[2024-12-04] MEDS ORDERED: HYDROCODONE BIT/ACETAMINOPHEN 5/325 MG 1 TAB HOME.PACK PO PRN (22:15)
[2024-12-04] MEDS ORDERED: CEPHALEXIN MONOHYDRATE 500 MG HOME.PACK PO ONE (22:15)
[2024-12-04] MEDS ORDERED: CEPHALEXIN500 M1 PO (22:22)
[2024-12-04] MEDS ORDERED: HYDROCODON-ACE1 EA10 PO (22:22)
[2024-12-04 22:45] VITALS: BP 132/72
== END 2024-12-04 22:45 | disposition home or self-care (01) ==
LOC: ED 20:47
DX: S62.634B Displaced fracture of distal phalanx of right ring finger, initial encounter for open fracture (principal); E78.5 Hyperlipidemia, unspecified; E03.9 Hypothyroidism, unspecified; Z79.899 Other long term (current) drug therapy; Z86.73 Personal history of transient ischemic attack (TIA), and cerebral infarction without residual deficits; W23.0XXA Caught, crushed, jammed, or pinched between moving objects, initial encounter
CPT/HCPCS: 12001; 73130; 90471; 90715; 99283-25; A9270